=== PATIENT | female | born 2000 | race Two or more races ===

== ENCOUNTER 2019-04-16 20:00 | Emergency (ER) | payer SELFPAY ==
[~2019-04-16] VITALS: Ht 142.2 cm; Wt 54.0 kg
--- NOTE | 2019-04-16 20:40 | NUR ---
PT AAOX4. C/O LEFT ANKLE PAIN, SWELLING X 2 DAYS. DENIES TRAUMA. RR EVEN AND UNLABORED. NO ACUTE DISTRESS NOTED.
--- NOTE | 2019-04-16 20:59 | NUR ---
Patient discharged to home in stable condition. Written and verbal after care instructions given. Patient verbalizes understanding of instruction and RX. EMT wrapped the pt's leg (romain wrap.)
[2019-04-16] MEDS ORDERED: IBUPROFEN 400 MG TABLET PO ONE (21:00)
[2019-04-16] MEDS ORDERED: CEPHALEXIN MONOHYDRATE 500 MG CAPSULE PO ONE ×2 (21:00→21:06)
[2019-04-16 21:01] VITALS: BP 126/76
[2019-04-16] MEDS ORDERED: IBUPROFEN 400 MG TABLET ONE (21:06)
--- NOTE | 2019-04-16 21:09 | NUR ---
PT AMBULATED USING CRUTCHES.
== END 2019-04-16 21:11 | disposition home or self-care (01) ==
LOC: ER 20:00
DX: L03.116 Cellulitis of left lower limb (principal)
CPT/HCPCS: 73610-TC